=== PATIENT | female | born 2000 | race Caucasian/White ===

== ENCOUNTER 2021-02-09 17:17 | Emergency (ER) | payer OTHER ==
[2021-02-09 17:44] VITALS: BP 94/61; PULSE 78; TEMP 98.4; BMI 18.0
[2021-02-09] MEDS ORDERED: ACETAMINOPHEN 1000 MG/100 ML VIAL (NON FORMULARY) IVPB ONE (18:47)
[2021-02-09] MEDS ORDERED: ONDANSETRON 4 MG/2 ML VIAL IVPUSH ONE (18:47)
[2021-02-09] MEDS ORDERED: ACETAMINOPHEN INJECTION 100 ML IVPB ONE (19:10)
[2021-02-09] MEDS ORDERED: ONDANSETRON 4 MG/2 ML VIAL ONE (19:10)
[2021-02-09 20:09] LABS: CHLORIDE 107 mmol/L (98-107); PROTHROMBIN TIME (PATIENT) 12.1 SEC (9.7-13.0); SODIUM 139 mmol/L (136-145)
[2021-02-09 20:11] LABS: ACTIVATED PTT 26.6 SECONDS (25.2-36.5); ALBUMIN 3.8 g/dl (3.4-5.0); ANION GAP 5 MMOL/L (8-16); BASO % 0.7 % (0-2.0); CALCIUM 9.5 mg/dL (8.5-10.1); CO2 27 mmol/L (21-32); EOS % 3.8 % (0-4.5); HEMATOCRIT 43.7 % (32.4-45.2); HEMOGLOBIN 14.9 GM/dL (10.7-15.3); LYMPH % 39.2 % (8-40); MCH 30.5 pg (25.7-33.7); MCHC 34.1 g/dl (32.0-36.0); MEAN CELL VOLUME 89.4 fl (80-96); MONO % 7.2 % (3.8-10.2); NEUT % 49.1 % (42.8-82.8); PLATELET COUNT 312 K/MM3 (134-434); RBC 4.89 M/mm3 (3.60-5.2); RDW 12.9 % (11.6-15.6); WHITE BLOOD COUNT 6.7 K/mm3 (4.0-10.0)
[2021-02-09 20:12] LABS: BLOOD UREA NITROGEN 10.7 mg/dL (7-18); GLUCOSE,RANDOM 86 mg/dL (74-106)
[2021-02-09 20:15] LABS: CREATININE 0.7 mg/dL (0.55-1.3); SGOT/AST 19 U/L (15-37); SGPT/ALT 25 U/L (13-61)
[2021-02-09 20:16] LABS: TOT PROT 7.6 g/dl (6.4-8.2)
[2021-02-09 20:17] LABS: ALK PHOS 70 U/L (45-117)
[2021-02-09] MEDS ORDERED: IBUPROFEN 400 MG TABLET (FP) PO ONE ×2 (20:21→20:26)
[2021-02-09 20:22] LABS: BILIRUBIN,TOTAL 1.3 mg/dL (0.2-1)
[2021-02-09] MEDS ORDERED: LACTULOSE 20 GM/30 ML UDC (FOR ORAL USE ONLY) PO ONE (20:43)
[2021-02-09 20:57] LABS: URINE APPEARANCE CLOUDY; URINE BILIRUBIN NEGATIVE (NEGATIVE); URINE COLOR YELLOW; URINE GLUCOSE (UA) NEGATIVE (NEGATIVE); URINE KETONE NEGATIVE (NEGATIVE); URINE LEUK ESTERASE NEGATIVE (NEGATIVE); URINE NITRITE NEGATIVE (NEGATIVE); URINE PROTEIN NEGATIVE (NEGATIVE)
[2021-02-09 21:08] LABS: HIV INTERPRETATION NEGATIVE (NEGATIVE)
[2021-02-09] MEDS ORDERED: LACTULOSE 20 GM/30 ML UDC (FOR ORAL USE ONLY) ONE (21:10)
== END 2021-02-09 22:14 | disposition home or self-care (01) ==
LOC: JER 17:17
PROC: 3E0333Z Introduction of Anti-inflammatory into Peripheral Vein, Percutaneous Approach (ICD-10-PCS; principal; 2021-02-09)
PROC: 3E033GC Introduction of Other Therapeutic Substance into Peripheral Vein, Percutaneous Approach (ICD-10-PCS; 2021-02-09)
DX: R14.0 Abdominal distension (gaseous) (principal); K59.00 Constipation, unspecified
CPT/HCPCS: 36415; 76830-TC; 80053; 80074; 81003; 84702; 85025; 85610; 85730; 86780; 87086; 87389; 87491; 87591; 87661; 99284-25; J0131

== ENCOUNTER 2024-03-21 11:25 | Emergency (ER) | payer OTHER ==
[2024-03-21 11:47] VITALS: BP 109/69; PULSE 77; RESP 18; TEMP 97.5; BMI 21.2
[2024-03-21] MEDS: SODIUM CHLORIDE 1,000 ML IV STA (13:29)
[2024-03-21] MEDS ORDERED: ACETAMINOPHEN INJECTION 100 ML IVPB ONE (13:31)
[2024-03-21 13:33] LABS: BASO % 0.6 % (0-2.0); EOS % 1.3 % (0-4.5); EPI CELLS 6 /uL (0-25.1); HEMATOCRIT 42.3 % (32.4-45.2); HEMOGLOBIN 14.8 GM/dL (10.7-15.3); HYALINE CASTS 0 /uL (0-3.1); LYMPH % 40.6 % (8-40); MCH 30.1 pg (25.7-33.7); MEAN PLT VOLUME 7.8 fl (7.5-11.1); MONO % 6.4 % (3.8-10.2); NEUT % 51.1 % (42.8-82.8); PH,URINE 8.5 (5.0-8.0); PLATELET COUNT 314 10^3/uL (134-434); RBC 4.92 M/mm3 (3.60-5.2); RDW 12.4 % (11.6-15.6); URINE APPEARANCE CLEAR; URINE BACTERIA 40 /uL (0-1359); URINE BILIRUBIN NEGATIVE (NEGATIVE); URINE COLOR YELLOW; URINE GLUCOSE (UA) NEGATIVE (NEGATIVE); URINE KETONE NEGATIVE (NEGATIVE); URINE LEUK ESTERASE NEGATIVE (NEGATIVE); URINE NITRITE NEGATIVE (NEGATIVE); URINE PROTEIN NEGATIVE (NEGATIVE); URINE RBC 7 /uL (0-23.9); URINE WBC 14 /uL (0-25.8); WHITE BLOOD COUNT 6.3 K/mm3 (4.0-10.0)
[2024-03-21 13:41] LABS: HCG,QUALITATIVE URINE Negative
[2024-03-21] MEDS: ACETAMINOPHEN 1000 MG/100 ML BAG IVPB ONE (13:47)
[2024-03-21 13:52] LABS: POTASSIUM 4.4 mmol/L (3.5-5.1)
[2024-03-21 13:54] LABS: CALCIUM 9.7 mg/dL (8.5-10.1)
[2024-03-21 13:55] LABS: ALBUMIN 3.9 g/dl (3.4-5.0); BLOOD UREA NITROGEN 7.5 mg/dL (7-18)
[2024-03-21 13:59] LABS: BILIRUBIN,TOTAL 1.1 mg/dL (0.2-1); INR 1.05 (0.83-1.09); PROTHROMBIN TIME (PATIENT) 12.1 SEC (9.7-13.0); TOT PROT 7.5 g/dl (6.4-8.2)
[2024-03-21 14:00] LABS: CREATININE 0.8 mg/dL (0.55-1.3)
== END 2024-03-21 17:36 | disposition home or self-care (01) ==
LOC: JER 11:25
PROC: 3E033NZ Introduction of Analgesics, Hypnotics, Sedatives into Peripheral Vein, Percutaneous Approach (ICD-10-PCS; principal; 2024-03-21)
PROC: 3E0337Z Introduction of Electrolytic and Water Balance Substance into Peripheral Vein, Percutaneous Approach (ICD-10-PCS; 2024-03-21)
DX: R10.13 Epigastric pain (principal); R11.2 Nausea with vomiting, unspecified
CPT/HCPCS: 36415; 74177-TC; 76705-TC; 80053; 81003; 83690; 84703; 85025; 85610; 86850; 86900; 86901; 99285-25; J0131; Q9967

== ENCOUNTER 2025-02-05 16:22 | Emergency (ER) | payer OTHER ==
[2025-02-05 16:32] VITALS: BP 100/72; PULSE 90; RESP 18; TEMP 98.8; BMI 21.6
[2025-02-05] MEDS ORDERED: ACETAMINOPHEN 500 MG TABLET (FP) ONE (17:25)
[2025-02-05] MEDS: ACETAMINOPHEN 500 MG TABLET (FP) PO ONE (17:47)
[2025-02-05 18:07] LABS: ABSOLUTE IMMATURE GRANULOCYTES 0.01 x10^3/uL (0.0-0.031); BASOPHILS # 0.04 x10^3/uL (0.01-0.08); EOSINOPHILS # 0.12 x10^3/uL (0.04-0.36); HEMATOCRIT 42.3 % (34.1-44.9); HEMOGLOBIN 14.4 g/dL (11.2-15.7); MEAN CELL VOLUME 86.5 fl (79.4-94.8); MONOCYTE # 0.42 x10^3/uL (0.24-0.86); PLATELET COUNT 281 x10^3/uL (182-369); RDW 11.9 % (12.1-16.5)
[2025-02-05 18:26] LABS: POTASSIUM 4.6 mmol/L (3.5-5.1)
[2025-02-05 18:28] LABS: BLOOD UREA NITROGEN 15.1 mg/dL (7-18); CALCIUM 9.6 mg/dL (8.5-10.1)
[2025-02-05 18:32] LABS: CREATININE 0.8 mg/dL (0.55-1.3)
[2025-02-05 18:33] LABS: TOT PROT 7.5 g/dl (6.4-8.2)
[2025-02-05 18:34] LABS: INR 1.1 (0.83-1.09); PROTHROMBIN TIME (PATIENT) 12.1 SEC (9.7-13.0)
[2025-02-05 18:36] LABS: ACTIVATED PTT 29.7 SECONDS (25.2-36.5)
[2025-02-05 19:22] LABS: HCV DIAGNOSTIC IN-HOUSE W/RFLX NON-REACTIVE (NONREACTIVE)
[2025-02-05 23:42] LABS: HIV INTERPRETATION NEGATIVE (NEGATIVE)
== END 2025-02-05 19:32 | disposition home or self-care (01) ==
LOC: JER 16:22
DX: R06.02 Shortness of breath (principal); R07.9 Chest pain, unspecified; R00.2 Palpitations
CPT/HCPCS: 36415; 71046-TC-FY; 80053; 84484; 84703; 85025; 85379; 85610; 85730; 86803; 87389; 93005; 93010; 99285-25